=== PATIENT | male | born 1950 | race Asian ===

== ENCOUNTER 2021-10-21 10:44 | Outpatient (CLI) | payer MEDICARE ==
[2021-10-22 10:22] LABS: SARS-CoV-2 PCR by NAA Not Detected (NotDetected)
== END 2021-10-21 10:45 | disposition home or self-care (01) ==
LOC: CSHLAB 10:44
PROVIDERS: ATTEND Family Medicine
DX: Z20.822 Contact with and (suspected) exposure to COVID-19 (principal)
CPT/HCPCS: U0003; U0005

== ENCOUNTER 2021-10-24 08:42 | Outpatient (CLI) | payer MEDICARE | END 2021-10-24 08:43 | disposition home or self-care (01) | LOC: CSHRAD 08:42 | PROVIDERS: ATTEND Family Medicine | DX: R13.12 Dysphagia, oropharyngeal phase (principal); R13.13 Dysphagia, pharyngeal phase; R93.3 Abnormal findings on diagnostic imaging of other parts of digestive tract; M25.78 Osteophyte, vertebrae | CPT/HCPCS: 74220 ==

== ENCOUNTER 2022-05-15 13:24 | Outpatient (CLI) | payer MEDICARE | END 2022-05-15 13:25 | disposition home or self-care (01) | LOC: CSHLAB 13:24 | PROVIDERS: ATTEND Family Medicine | DX: Z20.822 Contact with and (suspected) exposure to COVID-19 (principal) | CPT/HCPCS: 87811 ==

== ENCOUNTER 2022-05-20 09:45 | Outpatient (CLI) | payer MEDICARE, OTHER | END 2022-05-20 09:46 | disposition home or self-care (01) | LOC: CSHRAD 09:45 | PROVIDERS: ATTEND Family Medicine | DX: R13.12 Dysphagia, oropharyngeal phase (principal) | CPT/HCPCS: 74220 ==

== ENCOUNTER 2022-08-21 19:52 | Inpatient (IN) | payer MEDICARE, OTHER ==
[2022-08-21] MEDS ORDERED: Piperacillin/Tazobactam 3.375 GM VIAL ONE (21:17)
[2022-08-21 21:34] LABS: Hemoglobin 12.7 g/dL (13.5-17.5); Mean Corpuscular HGB CONC 34.6 g/dL (32.0-36.0); Mean Corpuscular Hemoglobin 29.6 pg (27.0-33.0); Mean Corpuscular Volume 85.5 fl (81.2-95.1); Mean Platelet Volume 10.4 fl (7.4-10.4); Platelet Count 520 10x3/uL (150-450); RBC Distribution Width 13.2 % (11.5-14.5); Red Blood Cell (RBC) Count 4.29 10x6/uL (4.32-5.72); White Blood Cell (WBC) Count 31.8 10x3/uL (3.5-10.5)
[2022-08-21 21:37] LABS: Lactic Acid 2.2 mmol/L (0.5-2.2)
[2022-08-21 21:42] LABS: ALT (SGPT) 20 U/L (8-55); AST (SGOT) 14 U/L (5-34); Albumin 3.3 g/dL (3.4-4.8); Alkaline Phosphatase 146 U/L (40-110); Anion Gap 17 mmol/L (10-20); BUN (Urea Nitrogen) 24 mg/dL (8.4-25.7); Bilirubin, Total 1.1 mg/dL (0.2-1.2); Calc. Creatinine Clearance 0 mL/min (70-130); Calcium 8.4 mg/dL (7.8-10.44); Carbon Dioxide 21 mmol/L (23-31); Chloride 98 mmol/L (98-107); Estimated GFR 55; Globulin 3.2 g/dL (2.4-3.5); Glucose 395 mg/dL (80-115); Potassium 4.3 mmol/L (3.5-5.1); Protein, Total 6.5 g/dL (5.8-8.1); Sodium 132 mmol/L (136-145)
[2022-08-21 22:18] LABS: SARS-CoV-2 NAA Rapid Test Not Detected (NotDetected)
[2022-08-21] MEDS ORDERED: Azithromycin 500 MG VIAL ONE (22:27)
[2022-08-21 23:44] LABS: MDiff Complete? YES
[2022-08-21 23:46] LABS: Band 4 % (5-11); Lymphocytes 3 % (21-51); Monocytes 5 % (0-10); Neutrophil 88 % (42-75)
[2022-08-21 23:47] LABS: Platelet Morphology Comment Appears Increased; RBC Morphology Normal
[2022-08-21] MEDS ORDERED: Communication Order-Pharmacy FS PRN (23:57)
[2022-08-22] MEDS ORDERED: Acetaminophen 325 MG TAB PO PRN (00:11)
[2022-08-22] MEDS ORDERED: Meropenem 1 GM in Sodium Chloride 0.9% 100 ML IVPB SCH ×2 (00:30→02:00)
[2022-08-22 00:48] LABS: ALT (SGPT) 14 U/L (8-55); AST (SGOT) 11 U/L (5-34); Albumin 2.8 g/dL (3.4-4.8); Alkaline Phosphatase 115 U/L (40-110); Anion Gap 13 mmol/L (10-20); BUN (Urea Nitrogen) 19 mg/dL (8.4-25.7); Bilirubin, Total 1.1 mg/dL (0.2-1.2); Calc. Creatinine Clearance 0 mL/min (70-130); Calcium 7.8 mg/dL (7.8-10.44); Carbon Dioxide 21 mmol/L (23-31); Chloride 105 mmol/L (98-107); Estimated GFR 88; Globulin 3.1 g/dL (2.4-3.5); Glucose 193 mg/dL (80-115); Potassium 3.6 mmol/L (3.5-5.1); Protein, Total 5.9 g/dL (5.8-8.1); Sodium 135 mmol/L (136-145)
[2022-08-22] MEDS ORDERED: Meropenem 500 MG VIAL ONE (01:02)
[2022-08-22] MEDS: Sodium Chloride 0.9% 1,000 ML IV SCH ×2 (01:12→10:26)
[2022-08-22 04:02] LABS: Hemoglobin 11.7 g/dL (13.5-17.5); Mean Corpuscular HGB CONC 35.1 g/dL (32.0-36.0); Mean Corpuscular Hemoglobin 30.1 pg (27.0-33.0); Mean Corpuscular Volume 85.6 fl (81.2-95.1); Mean Platelet Volume 9.8 fl (7.4-10.4); Platelet Count 452 10x3/uL (150-450); RBC Distribution Width 13.2 % (11.5-14.5); Red Blood Cell (RBC) Count 3.89 10x6/uL (4.32-5.72); White Blood Cell (WBC) Count 27.4 10x3/uL (3.5-10.5)
[2022-08-22 04:13] LABS: Anion Gap 14 mmol/L (10-20); BUN (Urea Nitrogen) 17 mg/dL (8.4-25.7); Calc. Creatinine Clearance 0 mL/min (70-130); Calcium 8.2 mg/dL (7.8-10.44); Carbon Dioxide 21 mmol/L (23-31); Chloride 106 mmol/L (98-107); Estimated GFR 94; Glucose 145 mg/dL (80-115); Magnesium 1.7 mg/dL (1.6-2.6); Potassium 3.7 mmol/L (3.5-5.1); Sodium 137 mmol/L (136-145)
[2022-08-22 04:14] LABS: MDiff Complete? YES
[2022-08-22 07:05] LABS: Lymphocytes 5 % (21-51); Monocytes 4 % (0-10); Neutrophil 91 % (42-75)
[2022-08-22 07:06] LABS: Platelet Morphology Comment Appears Adequate; RBC Morphology Normal
[2022-08-22] MEDS ORDERED: Enoxaparin Sodium 40 MG/0.4 ML SYRINGE SC SCH (09:00)
[2022-08-22] MEDS: Meropenem 1 GM in Sodium Chloride 0.9% 100 ML IVPB SCH ×2 (10:26→17:09)
[2022-08-22] MEDS: Guaifenesin DM 100-10/5 ML UDCUP PO PRN ×2 (11:20→16:20)
[2022-08-22] MEDS ORDERED: Lidocaine 1% PF 5 ML VIAL ONE (11:22)
[2022-08-22] MEDS ORDERED: Sodium Bicarbonate 2.5 MEQ/5 ML VIAL ONE (11:22)
[2022-08-22 11:46] LABS: Bilirubin Neg (Negative); Blood, Urine 10 (Negative); Clarity Clear (Clear); Glucose, Urine (Dipstick) Normal (Negative); Ketone, Urine Negative (Negative); Leukocyte Negative (Negative); Nitrite Negative (Negative); Protein, Urine (Dipstick) 30 mg/dl (Neg-Trace)
[2022-08-22 12:04] LABS: RBC/HPF 0-3 HPF (0-3); Squamous Epithelial 0-3 HPF (0-3); WBC/HPF 0-3 HPF (0-3)
[2022-08-22 12:05] LABS: Bacteria/HPF 1+ HPF (None Seen); Sperm/HPF 3+ HPF (None Seen)
[2022-08-22 13:04] LABS: BF Color Yellow; Body Fluid Source Thoracentesis Fluid; Clarity Cloudy/Turbid (Clear); Tube # EDTA
[2022-08-22 14:31] LABS: BF Segmented Neutrophils 79 %; Cell Count Non Hematic 12 %; Lymphocytes 9 %
[2022-08-22 17:11] LABS: Pleural Fluid, Protein 4.6 g/dL
[2022-08-22] MEDS ORDERED: Azithromycin 500 MG in Sodium Chloride 0.9% 250 ML 250 ML IVPB SCH (22:30)
[2022-08-25] MEDS ORDERED: FLU VACC QS2022-23(65YR UP)/PF 240 MCG/0.7 ML SYRINGE IM ONE (10:30)
[2022-08-25 11:10] VITALS: BP 143/91; TEMP 97.8; BMI 21.9
== END 2022-08-22 18:56 | disposition short-term general hospital (02) | DRG 871 ==
LOC: CSHERS 21:03 → CSHERHOLD 08-22 00:27 → CSHICU 08-22 07:36
PROVIDERS: ADMIT Family Medicine; ATTEND Student in an Organized Health Care Education/Training Program
PROC: 0W993ZZ Drainage of Right Pleural Cavity, Percutaneous Approach (ICD-10-PCS; principal; 2022-08-22)
PROC: 3E03329 Introduction of Other Anti-infective into Peripheral Vein, Percutaneous Approach (ICD-10-PCS; 2022-08-22)
DX: A41.9 Sepsis, unspecified organism (principal); J18.9 Pneumonia, unspecified organism; J96.01 Acute respiratory failure with hypoxia; J90 Pleural effusion, not elsewhere classified; J98.11 Atelectasis; R65.20 Severe sepsis without septic shock; I10 Essential (primary) hypertension; Z20.822 Contact with and (suspected) exposure to COVID-19; E11.65 Type 2 diabetes mellitus with hyperglycemia; R13.13 Dysphagia, pharyngeal phase; M10.9 Gout, unspecified; Z79.84 Long term (current) use of oral hypoglycemic drugs; Z87.891 Personal history of nicotine dependence; Z79.899 Other long term (current) drug therapy
CPT/HCPCS: 32555; 36416; 71045; 71275; 80053; 81001; 82150; 82945; 83605; 83615; 83735; 83880; 84157; 84484; 85025; 87040; 87070; 87205; 88112; 88305; 89051; 93005; 96374; 96375; J0456; J2185; J2543; J3490; J7050

== ENCOUNTER 2023-03-02 08:14 | Outpatient (CLI) | payer MEDICARE ==
[2023-03-02] MEDS ORDERED: Magnevist 469MG/ML 20 ML VIAL ONE (09:32)
== END 2023-03-02 08:15 | disposition home or self-care (01) ==
LOC: CSHMRI 08:14
PROVIDERS: ATTEND Radiology Radiation Oncology
DX: C71.1 Malignant neoplasm of frontal lobe (principal); Z98.890 Other specified postprocedural states; G93.6 Cerebral edema
CPT/HCPCS: 70553; A9579

== ENCOUNTER 2023-06-18 09:42 | Outpatient (CLI) | payer MEDICARE ==
[2023-06-18] MEDS ORDERED: Magnevist 469MG/ML 20 ML VIAL ONE (09:57)
== END 2023-06-18 09:43 | disposition home or self-care (01) ==
LOC: CSHMRI 09:42
PROVIDERS: ATTEND Radiology Radiation Oncology
DX: C71.9 Malignant neoplasm of brain, unspecified (principal); Z98.890 Other specified postprocedural states; Z92.21 Personal history of antineoplastic chemotherapy; Z92.3 Personal history of irradiation
CPT/HCPCS: 70553

== ENCOUNTER 2023-08-19 08:09 | Outpatient (CLI) | payer MEDICARE ==
[2023-08-19] MEDS ORDERED: Magnevist 469MG/ML 20 ML VIAL ONE (08:52)
== END 2023-08-19 08:10 | disposition home or self-care (01) ==
LOC: CSHMRI 08:09
PROVIDERS: ATTEND Radiology Radiation Oncology
DX: C71.9 Malignant neoplasm of brain, unspecified (principal); Z98.890 Other specified postprocedural states; Z92.3 Personal history of irradiation
CPT/HCPCS: 70553

== ENCOUNTER 2023-12-24 08:29 | Outpatient (CLI) | payer MEDICARE ==
[2023-12-24] MEDS ORDERED: Magnevist 469MG/ML 20 ML VIAL ONE (12:39)
== END 2023-12-24 08:30 | disposition home or self-care (01) ==
LOC: CSHMRI 08:29
PROVIDERS: ATTEND Radiology Radiation Oncology
DX: C71.2 Malignant neoplasm of temporal lobe (principal); Z98.890 Other specified postprocedural states; Z92.21 Personal history of antineoplastic chemotherapy; Z92.3 Personal history of irradiation
CPT/HCPCS: 70553; A9579